=== PATIENT | female | born 1945 | race Caucasian/White ===

== ENCOUNTER 2016-12-26 12:37 | Emergency (ER) | payer MEDICARE ==
[2016-12-26 14:02] LABS: BASOPHIL 0.1 % (0-2); EOSINOPHIL 0.1 % (0-7); HCT 44.7 % (37.0-47.0); LYMPHOCYTE 4.7 % (15-48); MCH 29.6 pg (25.0-31.0); MCHC 33.6 g/dL (32.0-36.0); MCV 88.2 fL (78.0-100.0); MONOCYTE 7.1 % (0-12); MPV 10.6 fL (6.0-9.5); PLT 216 K/uL (150-400); RBC 5.07 M/uL (4.20-5.40); RDW 12.9 % (11.5-14.0); WBC 12.6 K/uL (4.0-10.5)
[2016-12-26 14:05] LABS: BILIRUBIN NEGATIVE (NEGATIVE); BLOOD 2+ Ery/uL (NEGATIVE); COLOR YELLOW (YELLOW); GLUCOSE (U) 1+ mg/dL (NORMAL); KETONE (U) 2+ (MODERATE) mg/dL (NEGATIVE); LEUKOCYTES NEGATIVE Leu/uL (NEGATIVE); NITRITE NEGATIVE (NEGATIVE); PROTEIN NEGATIVE (NEGATIVE); SPECIFIC GRAVITY 1.025 (1.001-1.030); UROBILINOGEN 0.2 mg/dL (0.2-1.0)
[2016-12-26 14:06] LABS: CLARITY HAZY (CLEAR)
[2016-12-26 14:17] LABS: ALBUMIN 3.6 g/dL (3.4-4.8); BILIRUBIN - TOTAL 0.8 mg/dL (0.1-1.0); CREATININE 0.9 mg/dL (0.5-1.0); GLOBULIN (CALCULATION) 3.4 g/dL (2.2-4.2); POTASSIUM 4.1 mmol/L (3.5-5.1)
== END 2016-12-26 15:05 | disposition home or self-care (01) ==
LOC: FER 12:37
PROVIDERS: Nurse Practitioner
DX: N13.2 Hydronephrosis with renal and ureteral calculous obstruction (principal); E11.9 Type 2 diabetes mellitus without complications; Z79.4 Long term (current) use of insulin; Z79.899 Other long term (current) drug therapy
CPT/HCPCS: 36415; 80053; 81001; 83690; 85025; J2270; J2405

== ENCOUNTER 2020-06-07 17:49 | Emergency (ER) | payer MEDICARE ==
[~2020-06-07 17:49] MED LIST: ALEVE220 M1 PO; GLIMEPIRIDE4 MG PO; LEVEMIR VI100 UNITS/ SC; PROLIA60 MG/1 ML SC; VIT D; VOLTAREN **OUT75 MG PO; ZESTRIL5 MG PO
[2020-06-07 20:15] LABS: BILIRUBIN NEGATIVE (NEGATIVE); BLOOD NEGATIVE Ery/uL (NEGATIVE); CLARITY CLEAR (CLEAR); COLOR YELLOW (YELLOW); GLUCOSE (U) NORMAL (NORMAL); LEUKOCYTES NEGATIVE Leu/uL (NEGATIVE); NITRITE NEGATIVE (NEGATIVE); PROTEIN NEGATIVE (NEGATIVE); UROBILINOGEN 0.2 mg/dL (0.2-1.0); pH 7.5 (5.0-9.0)
[2020-06-07 20:27] LABS: BASOPHIL 0.3 % (0-2); EOSINOPHIL 0.4 % (0-7); HCT 45.9 % (37.0-47.0); HGB 14.7 g/dl (12.5-16.0); LYMPHOCYTE 12.3 % (15-48); MCH 29.5 pg (25.0-31.0); MONOCYTE 9.2 % (0-12); MPV 10.5 fL (6.0-9.5); NEUTROPHIL 77.4 % (41-80); NRBC 0; PLT 243 K/uL (150-400); RBC 4.99 M/uL (4.20-5.40); RDW 12.7 % (11.5-14.0); WBC 11.8 K/uL (4.0-10.5)
[2020-06-07] MEDS ORDERED: DICLOFENAC SODI75 MG PO (20:37)
[2020-06-07] MEDS ORDERED: CYCLOBENZAPRINE10 MG PO (20:37)
== END 2020-06-07 20:47 | disposition home or self-care (01) ==
LOC: FER 17:49
PROVIDERS: Emergency Medicine
DX: M54.32 Sciatica, left side (principal); M54.31 Sciatica, right side; E11.9 Type 2 diabetes mellitus without complications; I10 Essential (primary) hypertension; Z85.3 Personal history of malignant neoplasm of breast; Z79.4 Long term (current) use of insulin; Z79.899 Other long term (current) drug therapy
CPT/HCPCS: 36415; 81003; 85025; 99285; J1885

== ENCOUNTER → 2021-05-29 | Day surgery (SDC) | payer MEDICARE ==
[~2021-05-29] VITALS: Ht 162.6 cm; Wt 76.8 kg
[~2021-05-29] MED LIST changes: +CYCLOBENZAPRINE10 MG PO; +DICLOFENAC SODI75 MG PO; +HUMALOG 75100 UNIT/M IJ; +TOUJEO MAX300 UNIT/1 IJ
== END | disposition home or self-care (01) ==
LOC: FAS 12:34
DX: H26.491 Other secondary cataract, right eye (principal); I10 Essential (primary) hypertension; Z79.899 Other long term (current) drug therapy

== ENCOUNTER 2021-06-16 06:27 | Day surgery (SDC) | payer MEDICARE ==
[~2021-06-16] VITALS: Ht 160 cm; Wt 86.0 kg
--- NOTE | 2021-06-16 11:41 | NUR ---
PT. HAD A RTKR THIS DATE. ANTICIPATED D/C HOME WILL BE 06/17/21 WITH SPOUSE. PT. HAS A RW AND REQUESTS [facility] FOR [facility].
[2021-06-17 06:35] LABS: BASOPHIL 0.1 % (0-2); EOSINOPHIL 0 % (0-7); HCT 37.2 % (37.0-47.0); HGB 12.2 g/dl (12.5-16.0); LYMPHOCYTE 4.3 % (15-48); MCH 29.6 pg (25.0-31.0); MCHC 32.8 g/dL (32.0-36.0); MCV 90.3 fL (78.0-100.0); MONOCYTE 9.4 % (0-12); MPV 11.6 fL (6.0-9.5); NEUTROPHIL 85.6 % (41-80); NRBC 0; PLT 198 K/uL (150-400); RBC 4.12 M/uL (4.20-5.40); RDW 12.9 % (11.5-14.0); WBC 15.8 K/uL (4.0-10.5)
[2021-06-17 06:44] LABS: BUN/CREAT RATIO (CALC) 23.9 RATIO; CREATININE 0.71 mg/dL (0.51-0.95); POTASSIUM 4.5 mmol/L (3.5-5.1)
[2021-06-17] MEDS ORDERED: XARELTO10 MG PO (09:04)
[2021-06-17] MEDS ORDERED: OXYCODONE-ACET1 EAC1 PO (09:04)
[2021-06-17] MEDS ORDERED: FEOSOL325 MG PO (09:04)
[2021-06-17] MEDS ORDERED: ONDANSETRON HCL4 MG PO (10:11)
--- NOTE | 2021-06-17 10:36 | NUR ---
PT D/C HOME THIS DATE. PT. SIGNED CHOICE FORM AND COPY GIVEN. [facility], SPOKE WITH SANDRA. PT. COPAY FOR [facility] IS $14.00 PHARAMCIST ALSO NEEDS TO SPEAK WITH PROVIDER CONCERNING PAIN MEDICATION. GAVE THE MESSAGE TO HOLLIS SORIANO, TO CALL THE PHARMACIST.
== END 2021-06-17 12:13 | disposition home health service (06) ==
LOC: FAS 06:27 → FMS 06:27 → FAS 09:00 → FMS 10:42 → FAS 06-17 12:13
PROVIDERS: Legal Medicine
DX: M17.11 Unilateral primary osteoarthritis, right knee (principal); M84.369A Stress fracture, unspecified tibia and fibula, initial encounter for fracture; M25.761 Osteophyte, right knee; M67.261 Synovial hypertrophy, not elsewhere classified, right lower leg; E11.9 Type 2 diabetes mellitus without complications; I10 Essential (primary) hypertension; K21.9 Gastro-esophageal reflux disease without esophagitis; Z79.01 Long term (current) use of anticoagulants; Z96.652 Presence of left artificial knee joint
CPT/HCPCS: 36415; 73560; 80048; 85025; 86850; 86900; 86901; 94010; 97110; 97162; 97165; 97530-GP; 97535; C1713; C1776; J0171; J0697; J0735; J1100; J1170; J1815; J1885; J2001; J2250; J2270; J2405; J2704; J2795; J3010; J7120

== ENCOUNTER → 2021-08-28 | Day surgery (SDC) | payer MEDICARE ==
[~2021-08-28] VITALS: Ht 160 cm; Wt 77.1 kg
[~2021-08-28] MED LIST changes: +FEOSOL325 MG PO; +ONDANSETRON HCL4 MG PO; +OXYCODONE-ACET1 EAC1 PO; +XARELTO10 MG PO
== END | disposition home or self-care (01) ==
LOC: FAS 13:27
DX: H26.493 Other secondary cataract, bilateral (principal); I10 Essential (primary) hypertension; E11.9 Type 2 diabetes mellitus without complications; Z79.4 Long term (current) use of insulin; Z79.899 Other long term (current) drug therapy

== ENCOUNTER 2021-09-23 20:48 | Inpatient (IN) | payer MEDICARE ==
[~2021-09-23] VITALS: Ht 160 cm; Wt 85.9 kg
[2021-09-23 23:11] LABS: BASOPHIL 0.3 % (0-2); EOSINOPHIL 0.3 % (0-7); HCT 43.4 % (37.0-47.0); HGB 14.1 g/dl (12.5-16.0); MCH 29.1 pg (25.0-31.0); MCHC 32.5 g/dL (32.0-36.0); MCV 89.7 fL (78.0-100.0); MONOCYTE 6.4 % (0-12); MPV 11.4 fL (6.0-9.5); NEUTROPHIL 85.2 % (41-80); NRBC 0; PLT 174 K/uL (150-400); RBC 4.84 M/uL (4.20-5.40); RDW 13.3 % (11.5-14.0); WBC 13.5 K/uL (4.0-10.5)
[2021-09-23 23:41] LABS: CORONAVIRUS 2019 SARS-COV-2 NEGATIVE (NEGATIVE); INFLUENZA A NAA NEGATIVE (NEGATIVE)
[2021-09-23 23:44] LABS: BILIRUBIN - TOTAL 0.4 mg/dL (0.2-1.0); BUN/CREAT RATIO (CALC) 23.9 RATIO; CREATININE 0.67 mg/dL (0.51-0.95); GLOBULIN (CALCULATION) 3.9 g/dL; POTASSIUM 3.7 mmol/L (3.5-5.1); TOTAL PROTEIN 6.9 g/dL (6.4-8.2)
[2021-09-24 04:07] LABS: BILIRUBIN NEGATIVE (NEGATIVE); BLOOD TRACE-INTACT Ery/uL (NEGATIVE); CLARITY CLEAR (CLEAR); COLOR YELLOW (YELLOW); GLUCOSE (U) NORMAL (NORMAL); LEUKOCYTES NEGATIVE Leu/uL (NEGATIVE); NITRITE NEGATIVE (NEGATIVE); PROTEIN NEGATIVE (NEGATIVE); SPECIFIC GRAVITY 1.025 (1.001-1.030); UROBILINOGEN 0.2 mg/dL (0.2-1.0)
[2021-09-24 04:21] LABS: BACTERIA 1+; MUCOUS TRACE; URINARY WBC RARE
[2021-09-24 07:04] LABS: INR 1.05 (0.9-1.2); PROTHROMBIN TIME 13.1 SECONDS (11.8-13.4)
[2021-09-25 06:24] LABS: BASOPHIL 0.2 % (0-2); EOSINOPHIL 0.8 % (0-7); HCT 32.6 % (37.0-47.0); HGB 10.2 g/dl (12.5-16.0); LYMPHOCYTE 11.8 % (15-48); MCH 28.6 pg (25.0-31.0); MCHC 31.3 g/dL (32.0-36.0); MCV 91.3 fL (78.0-100.0); MONOCYTE 7.7 % (0-12); MPV 10.7 fL (6.0-9.5); NRBC 0; PLT 169 K/uL (150-400); RBC 3.57 M/uL (4.20-5.40); RDW 13.3 % (11.5-14.0); WBC 8.5 K/uL (4.0-10.5)
[2021-09-25 06:56] LABS: BUN/CREAT RATIO (CALC) 21.2 RATIO; CREATININE 0.8 mg/dL (0.51-0.95); POTASSIUM 4.2 mmol/L (3.5-5.1)
[2021-09-26 05:47] LABS: BASOPHIL 0.4 % (0-2); EOSINOPHIL 4.7 % (0-7); HCT 33.4 % (37.0-47.0); HGB 10.5 g/dl (12.5-16.0); LYMPHOCYTE 15.3 % (15-48); MCH 28.7 pg (25.0-31.0); MCHC 31.4 g/dL (32.0-36.0); MCV 91.3 fL (78.0-100.0); MONOCYTE 8.2 % (0-12); MPV 11.1 fL (6.0-9.5); NEUTROPHIL 70.6 % (41-80); NRBC 0; PLT 170 K/uL (150-400); RBC 3.66 M/uL (4.20-5.40); RDW 13.5 % (11.5-14.0); WBC 7.5 K/uL (4.0-10.5)
[2021-09-26] MEDS ORDERED: KETOROLAC TROME10 MG PO (11:07)
[2021-09-26] MEDS ORDERED: ASPIRIN81 MG PO (11:07)
[2021-09-26] MEDS ORDERED: ACETAMINOPHEN500 M1 PO (11:07)
[2021-09-26] MEDS ORDERED: GABAPENTIN 100100 MG PO ×4 (11:07→13:38)
[2021-09-26] MEDS ORDERED: OXY-IR 5MG5 MG PO ×4 (11:07→13:38)
== END 2021-09-26 15:13 | disposition home health service (06) | DRG 481 ==
LOC: FER 20:48 → FMS 09-24 00:12
PROVIDERS: Emergency Medicine; Hospitalist; Orthopaedic Surgery; ADMIT Internal Medicine
PROC: 0QS604Z Reposition Right Upper Femur with Internal Fixation Device, Open Approach (ICD-10-PCS; principal; 2021-09-24 08:45)
DX: S72.141A Displaced intertrochanteric fracture of right femur, initial encounter for closed fracture (principal); D62 Acute posthemorrhagic anemia; E11.9 Type 2 diabetes mellitus without complications; I10 Essential (primary) hypertension; Z20.822 Contact with and (suspected) exposure to COVID-19; W19.XXXA Unspecified fall, initial encounter; D72.829 Elevated white blood cell count, unspecified; Z96.653 Presence of artificial knee joint, bilateral; Z85.3 Personal history of malignant neoplasm of breast; Z80.3 Family history of malignant neoplasm of breast
CPT/HCPCS: 36415; 71045; 73501; 73502; 76000; 80048; 80053; 81001; 82962; 83036; 84484; 85025; 85610; 86850; 86900; 86901; 93005; 94010; 97110; 97162; 97165; 97530; 97530-GP; 97535; C1713; J0697; J1100; J1170; J2250; J2270; J2405; J2704; J3010; J7030; J7120; U0002

== ENCOUNTER 2021-09-30 19:32 | Day surgery (SDCO) | payer MEDICARE ==
[~2021-09-30] VITALS: Ht 160 cm; Wt 85.7 kg
[~2021-09-30 19:32] MED LIST changes: +ACETAMINOPHEN500 M1 PO; +ASPIRIN81 MG PO; +GABAPENTIN 100100 MG PO; +KETOROLAC TROME10 MG PO; +OXY-IR 5MG5 MG PO
[2021-10-01 05:20] LABS: ALBUMIN 2.9 g/dL (3.4-5.0); CREATININE 0.69 mg/dL (0.51-0.95); GLOBULIN (CALCULATION) 3.5 g/dL; POTASSIUM 4.1 mmol/L (3.5-5.1); TOTAL PROTEIN 6.4 g/dL (6.4-8.2)
[2021-10-01 05:41] LABS: BASOPHIL 0.5 % (0-2); EOSINOPHIL 1.8 % (0-7); HCT 35.3 % (37.0-47.0); HGB 11.1 g/dl (12.5-16.0); LYMPHOCYTE 11.6 % (15-48); MCH 28.5 pg (25.0-31.0); MCHC 31.4 g/dL (32.0-36.0); MCV 90.5 fL (78.0-100.0); MONOCYTE 9.8 % (0-12); MPV 10.8 fL (6.0-9.5); NEUTROPHIL 75.4 % (41-80); NRBC 0; PLT 258 K/uL (150-400); RDW 13.9 % (11.5-14.0); WBC 9.4 K/uL (4.0-10.5)
[2021-10-02 06:24] LABS: BASOPHIL 0.6 % (0-2); EOSINOPHIL 4.1 % (0-7); HCT 34.5 % (37.0-47.0); LYMPHOCYTE 22.9 % (15-48); MCH 29.1 pg (25.0-31.0); MCHC 31.9 g/dL (32.0-36.0); MCV 91.3 fL (78.0-100.0); MONOCYTE 13.5 % (0-12); MPV 10.4 fL (6.0-9.5); NEUTROPHIL 58.1 % (41-80); NRBC 0; PLT 263 K/uL (150-400); RBC 3.78 M/uL (4.20-5.40); RDW 14.3 % (11.5-14.0); WBC 6.3 K/uL (4.0-10.5)
--- NOTE | 2021-10-02 09:19 | NUR ---
PATIENT IS LAYING IN BED DOING WELL, SHE STATED THAT SHE HAS BEEN GETTING UP TO THE [facility] AND DOING WELL WITH THAT. I STATED THAT SHE NEEDED TO GET IN THE CHAIR FOR ALL MEALS, PATIENT AGREED. PATIENT STATES THAT THE PAIN IS A LOT BETTER TODAY.
== END 2021-10-02 15:55 | disposition home or self-care (01) ==
LOC: FER 19:32 → FMS 10-01 00:31
PROVIDERS: Internal Medicine; Nurse Practitioner Acute Care; ADMIT Internal Medicine
DX: S72.121A Displaced fracture of lesser trochanter of right femur, initial encounter for closed fracture (principal); R26.2 Difficulty in walking, not elsewhere classified; W19.XXXA Unspecified fall, initial encounter; I10 Essential (primary) hypertension; E11.9 Type 2 diabetes mellitus without complications; Z96.653 Presence of artificial knee joint, bilateral; Z79.4 Long term (current) use of insulin; Z79.899 Other long term (current) drug therapy
CPT/HCPCS: 36415; 73502; 73700; 80053; 82962; 85025; 94010; 97116; 97162; 97165; 97535; G0378; J1170; J1650